=== PATIENT | female | born 1970 | race Caucasian/White ===

== ENCOUNTER → 2016-05-21 | Outpatient (CLI) | payer OTHER ==
[~2016-05-21] MED LIST: B-COTAB18 PO; CHOL100027 PO; CLON1TAB3 PO; FLUO20CA35 PO; GABA-112 PO; IBUP-1277 PO; LEVO25TA PO; OMEGCAP2 PO
[2016-05-21 12:17] LABS: BASO % 0.8 %; BASO ABS # 0.04 K/uL (0-0.2); COMPLETE YES; EOS % 2.1 %; HEMATOCRIT 39.2 % (37-47); IG% 0.4 %; LYMPH % 29.6 %; LYMPH ABS # 1.44 K/uL (1.2-3.4); MEAN CELL VOLUME 95.1 fL (80-100); MEAN CORPUSCULAR HGB CONC 33.7 g/dl (32-36); MEAN PLATELET VOLUME 10.5 fL (7.4-10.4); MONO % 8.8 %; NEUT % 58.3 %; PLATELET COUNT 204 K/uL (130-400); RED BLOOD COUNT 4.12 M/uL (4.2-5.4); WHITE BLOOD COUNT 4.87 K/uL (4.8-10.8)
[2016-05-21 12:38] LABS: T3 TOTAL 0.98 ng/ml (0.60-1.81)
[2016-05-21 12:53] LABS: THYROID STIMULATING HORMONE 1.83 uIu/ml (0.300-4.500)
== END | disposition home or self-care (01) ==
LOC: C.LABBFT 07:58
PROVIDERS: ATTEND Psychiatry & Neurology Psychiatry
DX: F31.81 Bipolar II disorder (principal)

== ENCOUNTER 2022-09-09 17:46 | Inpatient (IN) ==
--- NOTE | 2022-09-09 17:53 | Emergency Department Note ---
ED Provider Note History of Present Illness Chief Complaint: Diarrhea Stated Complaint: ABD PAIN,DIARRHEA SINCE FRI,VOMITING,WEAK,DIZZY Time Seen by Provider: 09/09/22 17:52 This is a 52-year-old female accompanied by her who presents to the emergency department with diarrhea, vomiting, and abdominal pain. Symptoms began 4 days ago and have not improved. She is concerned she is dehydrated. Initially began with diarrhea and then the following day had several episodes of vomiting and the abdominal pain began. Abdominal pain is located in the upper central abdomen. Intermittent in nature, comes and goes independent of anything specific. Does not radiate anywhere. Urine has become more concentrated but does not have any dysuria or frequency or urgency. Denies any sick contacts. Has not had any fevers, chills, body aches, upper respiratory symptoms, back pain. Denies any recent international travel. Is having 12 episodes of diarrhea per day. Describes it as dark brown and almost black. Negative fecal occult in primary care office. Saw primary care who ordered outpatient CT and ultrasound. CT showed prominent mesenteric and retroperitoneal lymph nodes, layering material within the gallbladder. Ultrasound showed biliary sludge with no shadowing gallstones and no evidence for acute cholecystitis. Patient has been taking Pepcid without much relief. History of , tubal ligation, endometrial ablation. Home Medications Medication Instructions Recorded Confirmed Type fluoxetine 40 mg capsule 80 mg PO QAM 09/23/21 09/09/22 History gabapentin 400 mg capsule 400 mg PO BID 09/09/22 09/09/22 History pantoprazole 20 mg tablet,delayed 20 mg PO DAILY #30 tabs 09/09/22 09/09/22 Rx release quetiapine 50 mg tablet,extended 100 mg PO HS 09/09/22 09/09/22 History release 24 hr sucralfate 1 gram tablet (Carafate) 1 g PO BID #14 tabs 09/09/22 09/09/22 Rx Allergies Allergy/AdvReac Type Severity Reaction Status Date / Time Sulfa (Sulfonamide Allergy Unknown HIVES Verified 09/08/22 11:38 Antibiotics) Past Med/Surg History Medical History Anxiety Depression History of COVID-19 12/2019, pcr test [place], loss taste/smell, flu-like symptoms>resolved. Hypertension "during only" Leiomyoma of uterus hx Post herpetic neuralgia "still takes gabapentin to help with the pain"-had shingle 8x in 6 years Surgical History H/O tubal ligation History of colposcopy with cervical biopsy History of endometrial ablation S/P section S/P LASIK surgery Family History Father Hypertension Mother Multiple sclerosis Denies family history of Ovarian cancer Prostate cancer Myocardial infarction Breast cancer Colorectal cancer Social History Smoking Status: Never smoker Second Hand Exposure: No; Do You Dip or Chew Tobacco: No; Hx Alcohol Use: Yes Alcohol type: wine Hx Substance Use: Yes (medical marijuana-edible) Last Used Substance Other:: "within August 2021" Preferred Language: Wolof Communication Ability: Effective Visual Impairment: No Limitations Hearing Ability: Normal Leather Etcher Required: No Beliefs That Will Affect Care: None marital status: Current Living Situation: Spouse and Family current occupational status: employed current occupation: [employer], shipping/recieving Feels Safe at Home: Yes Childhood Exposure to Second-Hand Smoke: No Diet: low carbohydrate caffeine: Yes during the past year weight has: remained stable Dental Care, Regularly: Yes Physical Activity Frequency: 1-2 Times per Week Seatbelt Use: always Sunscreen Use: Yes Assistive Devices: None Physical Exam Vital Signs Vital Signs - 24 hr 09/09/22 17:49 09/09/22 18:17 09/09/22 20:06 Temperature 97.7 F Temperature Source Temporal Artery Scan Pulse Rate 99 H Pulse Rate [Apical] 78 Respiratory Rate 20 16 Respiratory Effort / Characteristics Non-Labored Spontaneous Respiratory Depth Normal Respiratory Pattern Regular Blood Pressure 127/88 Blood Pressure [Left Arm] 121/88 Blood Pressure Mean 101 Blood Pressure Mean [Left Arm] 99 Blood Pressure Position Sitting Pulse Oximetry 96 95 Oxygen Delivery Method Room Air Room Air Room Air Sepsis Recent Fever Within 48 Hours No Sepsis New/Unexplained Change in Mental Status No Sepsis Action Taken by Nursing No Action Required CONSTITUTIONAL: Well developed, well nourished, mildly uncomfortable otherwise pleasant in no acute distress. EYES: conjunctivae normal, extraocular muscles intact. No scleral icterus ENMT: External ears normal. Nose with normal external appearance, no congestion. Oral mucous membranes dry. Oropharynx otherwise normal. NECK: Full active range of motion. Supple, nontender LYMPHATIC: No cervical adenopathy RESPIRATORY: Breathing unlabored and symmetric. Lungs clear to auscultation bilaterally. No wheeze, rales, or rhonchi. CARDIOVASCULAR: Tachycardic rate and regular rhythm. No murmurs, rubs, or gall ops. CHEST: Nontender, no crepitus. ABDOMEN: Normal bowel sounds. Abdomen is soft. There is reproducible right upper quadrant and epigastric tenderness, more prominent in the epigastrium. Negative Hay sign. No peritonitis. No CVA tenderness bilaterally. MUSCULOSKELETAL: Moves all extremities at all joints without pain or difficulty. No edema in bilateral lower extremities. SKIN: [place], warm, dry. No rash. NEUROLOGIC: Awake, alert, oriented. Gaze is conjugate. Face symmetric, speech normal. Moves head and all four extremities spontaneously. Sensation and strength grossly intact. PSYCHIATRIC: Appropriate. Normal affect Course Administered Medications Potassium Chloride (K Andrae / Wtr) 10 meq in 100 mls @ 100 mls/hr IV Q1H PHIL Stop: 09/09/22 21:29 Last Admin: 09/09/22 21:03 Dose: 100 mls/hr Documented By: Infusion: 09/09/22 21:02 Dose: 0 mls/hr Documented By: Admin: 09/09/22 19:56 Dose: 100 mls/hr Documented By: CRYSTAL Discontinued Medications Al Hydrox/Mg Hydrox/Simethicone (Aluminum/Magnesium Susp 30 Ml Udc) 15 ml PO NOW STA Stop: 09/09/22 18:17 Last Admin: 09/09/22 18:44 Dose: 15 ml Documented By: FADUMO Sodium Chloride (Nss 1000ml) 2,000 mls @ 999 mls/hr IV .Q2H1M ONE Stop: 09/09/22 20:16 Last Infusion: 09/09/22 21:02 Dose: 0 mls/hr Documented By: Admin: 09/09/22 18:43 Dose: 999 mls/hr Documented By: FADUMO Prochlorperazine (Compazine) 1 mls @ 1 mls/min IV ONE ONE Stop: 09/09/22 20:10 Last Admin: 09/09/22 20:17 Dose: 1 mls/min Documented By: CRYSTAL Magnesium Oxide (Magnesium Oxide 400 Mg Tab) 800 mg PO NOW STA Stop: 09/09/22 19:36 Last Admin: 09/09/22 19:51 Dose: 800 mg Documented By: CRYSTAL Morphine Sulfate (Morphine Sulfate 4 Mg/Ml 1 Ml Carp\\Vial) 4 mg IV NOW STA Stop: 09/09/22 18:17 Last Admin: 09/09/22 18:44 Dose: 4 mg Documented By: FADUMO Ondansetron HCl (Ondansetron Inj 2 Mg/Ml 2 Ml Vial) 4 mg IV NOW STA Stop: 09/09/22 18:17 Last Admin: 09/09/22 18:44 Dose: 4 mg Documented By: FADUMO Potassium Chloride (Potassium Chloride Crtab 20 Meq Tabcr) 40 meq PO NOW STA Stop: 09/09/22 19:27 Last Admin: 09/09/22 19:53 Dose: 40 meq Documented By: CRYSTAL Medical Decision Making Differential Diagnosis Infectious diarrhea, viral gastroenteritis, mesenteric adenitis, acute cholelithiasis, acute cholecystitis, choledocholithiasis, pancreatitis, peptic ulcer disease, gastritis, dissection, small bowel obstruction, among other pathology Medical Records Attestation: I reviewed the patient's medical records. (Reviewed primary care notes, outpatient labs and imaging) Laboratory Data 09/09/22 18:16 09/09/22 18:16 Lab Results 09/09/22 09/09/22 09/09/22 Range/Units 18:16 18:16 18:17 WBC 5.34 (4.8-10.8) K/ul RBC 5.07 (4.20-5.40) M/uL Hgb 15.5 (12.0-16.0) g/dl Hct 43.7 (37.0-47.0) % MCV 86.2 (80.0-100.0) fL MCH 30.6 (25.0-34.0) pg MCHC 35.5 (32.0-36.0) g/dL RDW Std Deviation 42.7 (36.4-46.3) fL RDW Coeff of Jhon 13.5 (11.5-14.5) % Plt Count 271 (130-400) K/uL MPV 10.4 (9.4-12.4) fL Immature Gran % (Auto) 0.6 % Neut % (Auto) 66.3 % Lymph % (Auto) 17.8 % [place] % (Auto) 12.5 % Eos % (Auto) 2.2 % Baso % (Auto) 0.6 % Neut # (Auto) 3.54 (1.40-6.50) K/uL Lymph # (Auto) 0.95 L (1.2-3.4) K/uL [place] # (Auto) 0.67 H (0.11-0.59) K/uL Eos # (Auto) 0.12 (0-0.50) K/uL Baso # (Auto) 0.03 (0-0.2) K/uL Immature Gran # (Auto) 0.03 (0.01-0.20) K/uL Toxic Vacuolation 1+ Polychromasia 1+ Sodium 136 (136-145) mmol/L Potassium 2.8 L (3.5-5.1) mmol/L Chloride 103 (98-107) mmol/L Carbon Dioxide 22 (21-32) mmol/L Anion Gap 11 (3-11) BUN 7 (6-23) mg/dl Creatinine 0.80 (0.6-1.2) mg/dl Est Cr Clr Drug Dosing 106.1 ml/min Est GFR ( Amer) 97.6 ml/min Est GFR (Non-Af Amer) 84.2 ml/min BUN/Creatinine Ratio 8.8 L (10-20) Glucose 120 H (70-99(Fasting)) mg/dl Calcium 8.8 (8.6-10.3) mg/dl Magnesium 1.8 (1.7-2.4) mg/dl Total Bilirubin 1.1 H (0.2-1.0) mg/dl AST 40 H (13-39) U/L ALT 69 H (7-52) U/L Alkaline Phosphatase 99 (34-104) U/L Troponin I High Sens 2.5 (0-14) pg/ml Total Protein 6.8 (6.0-8.3) gm/dl Albumin 4.1 (3.4-5.0) gm/dl Globulin 2.7 (2.5-4.0) gm/dl Albumin/Globulin Ratio 1.5 (0.9-2) Lipase 10 L (11-82) U/L Stl C. cayetanensis PCR (NotDetected) Stool Rotavirus A PCR (NotDetected) Stl Adenov F 40/41 PCR (NotDetected) Stool Astrovirus (PCR) (NotDetected) Stool Campylobacter PCR (NotDetected) Stl C. diff Tox B Gene Negative Cdiff Gene (Neg) Stool Cryptosporidium PCR (NotDetected) Stl E.coli Shiga Tox PCR (NotDetected) Stool E coli O157 PCR (NotDetected) Stl Enterotoxigenic E PCR (NotDetected) Stool EAEC (PCR) (NotDetected) Stl E. histolytica PCR (NotDetected) Stool Giardia Lamblia PCR (NotDetected) Stool Salmonella PCR (NotDetected) Stool Sapovirus (PCR) (NotDetected) Stl P. shigelloides PCR (NotDetected) Stl Shigella/EIEC PCR (NotDetected) St Y.enterocolitica PCR (NotDetected) Stool Vibrio (PCR) (NotDetected) Stl Vibrio cholerae PCR (NotDetected) Stl Norovirus GI/GII PCR (NotDetected) SARS-CoV-2, RNA, NAAT (NEGATIVE) 09/09/22 09/09/22 Range/Units 18:17 20:30 WBC (4.8-10.8) K/ul RBC (4.20-5.40) M/uL Hgb (12.0-16.0) g/dl Hct (37.0-47.0) % MCV (80.0-100.0) fL MCH (25.0-34.0) pg MCHC (32.0-36.0) g/dL RDW Std Deviation (36.4-46.3) fL RDW Coeff of Jhon (11.5-14.5) % Plt Count (130-400) K/uL MPV (9.4-12.4) fL Immature Gran % (Auto) % Neut % (Auto) % Lymph % (Auto) % [place] % (Auto) % Eos % (Auto) % Baso % (Auto) % Neut # (Auto) (1.40-6.50) K/uL Lymph # (Auto) (1.2-3.4) K/uL [place] # (Auto) (0.11-0.59) K/uL Eos # (Auto) (0-0.50) K/uL Baso # (Auto) (0-0.2) K/uL Immature Gran # (Auto) (0.01-0.20) K/uL Toxic Vacuolation Polychromasia Sodium (136-145) mmol/L Potassium (3.5-5.1) mmol/L Chloride (98-107) mmol/L Carbon Dioxide (21-32) mmol/L Anion Gap (3-11) BUN (6-23) mg/dl Creatinine (0.6-1.2) mg/dl Est Cr Clr Drug Dosing ml/min Est GFR ( Amer) ml/min Est GFR (Non-Af Amer) ml/min BUN/Creatinine Ratio (10-20) Glucose (70-99(Fasting)) mg/dl Calcium (8.6-10.3) mg/dl Magnesium (1.7-2.4) mg/dl Total Bilirubin (0.2-1.0) mg/dl AST (13-39) U/L ALT (7-52) U/L Alkaline Phosphatase (34-104) U/L Troponin I High Sens (0-14) pg/ml Total Protein (6.0-8.3) gm/dl Albumin (3.4-5.0) gm/dl Globulin (2.5-4.0) gm/dl Albumin/Globulin Ratio (0.9-2) Lipase (11-82) U/L Stl C. cayetanensis PCR Not Detected (NotDetected) Stool Rotavirus A PCR Not Detected (NotDetected) Stl Adenov F 40/41 PCR Not Detected (NotDetected) Stool Astrovirus (PCR) Not Detected (NotDetected) Stool Campylobacter PCR Not Detected (NotDetected) Stl C. diff Tox B Gene (Neg) Stool Cryptosporidium PCR DETECTED A* (NotDetected) Stl E.coli Shiga Tox PCR DETECTED A* (NotDetected) Stool E coli O157 PCR Not Detected (NotDetected) Stl Enterotoxigenic E PCR Not Detected (NotDetected) Stool EAEC (PCR) Not Detected (NotDetected) Stl E. histolytica PCR Not Detected (NotDetected) Stool Giardia Lamblia PCR Not Detected (NotDetected) Stool Salmonella PCR Not Detected (NotDetected) Stool Sapovirus (PCR) Not Detected (NotDetected) Stl P. shigelloides PCR Not Detected (NotDetected) Stl Shigella/EIEC PCR Not Detected (NotDetected) St Y.enterocolitica PCR Not Detected (NotDetected) Stool Vibrio (PCR) Not Detected (NotDetected) Stl Vibrio cholerae PCR Not Detected (NotDetected) Stl Norovirus GI/GII PCR Not Detected (NotDetected) SARS-CoV-2, RNA, NAAT NEGATIVE (NEGATIVE) ECG Data Attestation: I personally reviewed and interpreted this ECG as follows: (Sinus rhythm with a rate of 91. There are diffuse ST changes. Normal axis. Intervals within normal limits. No prior to compare.) MDM Narrative 52-year-old female presents to the emergency department with 4 days of diarrhea, intermittent vomiting, and intermittent epigastric pain. Concerned about dehydration. On initial exam she is mildly uncomfortable but certainly nontoxic otherwise pleasant. Heart rate rate around 100 and mucous membranes are dry, I suspect she is dehydrated. She does have reproducible tenderness in the epigastric region and less so on the right upper quadrant. Negative Hay sign. IV was inserted and labs were obtained. 2 L IV fluids was administered. She was given morphine for pain, Zofran for nausea, and a GI cocktail for epigastric discomfort as Pepcid was not therapeutic at controlling her symptoms. Outside records were reviewed through primary care. CT abdomen pelvis yesterday showed prominent mesenteric lymph nodes and layering in the gallbladder. Subsequent right upper quadrant ultrasound confirmed sludge with no stones, no evidence of cholecystitis. Labs: No leukocytosis. Hemoglobin slightly more concentrated today at 15.5 comp ared to 14.3 yesterday. Acute hypokalemia at 2.8 compared to 3.1 from yesterday. This was repleted with 40 mEq p.o. and 20 mEq IV potassium over 2 hours. Magnesium is normal. Total bilirubin improved to 1.1 from 1.5 yesterday. Mild elevation of AST and ALT, improved from yesterday. Troponin no rmal. Stool bio fire is positive for Cryptosporidium and Shiga toxin like E. coli. EKG: Demonstrates significant ST changes, likely secondary to hypokalemia. Patient required a dose of Compazine for ongoing nausea. Her tachycardia improved with IV fluid rehydration, and her pain improved to 4 or 5 out of 10. She otherwise remained hemodynamically stable. Due to ongoing GI losses resulting in acute hypokalemia with EKG changes, will admit the patient for observation, fluid rehydration, and ongoing management. Case was discussed with resident Dr. Gibson with [facility] hospitalist group working with Dr. Almeida who agrees to admit the patient for further management. We discussed avoiding antibiotics related to the E. coli, and in extreme cases can consider treatment with nitazoxanide for the Cryptosporidium however unsure if this would affect the E. coli given concern for development of hemolytic uremic syndrome when actively treated. Would consider discussion with GI or infectious disease. Impression Acute hypokalemia, Acute electrocardiogram changes, Cryptosporidiosis, Shiga toxin-producing Escherichia coli (E. coli) (STEC), unspecified Discharge Plan Visit Data Chief Complaint: Diarrhea Stated Complaint: ABD PAIN,DIARRHEA SINCE FRI,VOMITING,WEAK,DIZZY ED Provider: Andrew Chavez ED Midlevel Provider: Bao Hunt Discharge Problem: Acute hypokalemia, Acute electrocardiogram changes, Cryptosporidiosis, Shiga toxin-producing Escherichia coli (E. coli) (STEC), unspecified Patient Disposition: Admitted As Inpatient Condition: Good Prescriptions Prescriptions: No Action sucralfate [Carafate] 1 gram tablet 1 g PO BID Qty: 14 0RF pantoprazole 20 mg tablet,delayed release (DR/EC) 20 mg PO DAILY Qty: 30 2RF fluoxetine 40 mg capsule 80 mg PO QAM quetiapine 50 mg tablet extended release 24 hr 100 mg PO HS gabapentin 400 mg capsule 400 mg PO BID Referrals Referrals: Xiao Sharif MD [Primary Care Provider] -
[2022-09-09] MEDS ORDERED: ALUMINUM/MAGNESIUM SUSP 30 ML UDC PO STA (18:16)
[2022-09-09] MEDS ORDERED: MoRPHine SULFATE 4 MG/ML 1 ML CARP\\VIAL IV STA (18:16)
[2022-09-09] MEDS ORDERED: ONDANSETRON INJ 2 MG/ML 2 ML VIAL IV STA (18:16)
[2022-09-09] MEDS ORDERED: SODIUM CHLORIDE 0.9% 1000ML 2,000 ML IV ONE (18:16)
[2022-09-09 18:50] LABS: Hematocrit (blood only) 43.7 % (37.0-47.0); Hemoglobin 15.5 g/dl (12.0-16.0); Mean Corpuscular Hemoglobin 30.6 pg (25.0-34.0); Mean Corpuscular Hgb Conc 35.5 g/dL (32.0-36.0); Mean Corpuscular Volume 86.2 fL (80.0-100.0); Mean Platelet Volume 10.4 fL (9.4-12.4); Platelet Count 271 K/uL (130-400); RDW Coefficient of Variation 13.5 % (11.5-14.5); RDW Standard Deviation 42.7 fL (36.4-46.3); Red Blood Count 5.07 M/uL (4.20-5.40); White Blood Count 5.34 K/ul (4.8-10.8)
[2022-09-09 19:09] LABS: Albumin Globulin Ratio 1.5 (0.9-2); Albumin Level 4.1 gm/dl (3.4-5.0); BUN Creatinine Ratio 8.8 (10-20); Bilirubin,Total 1.1 mg/dl (0.2-1.0); Calcium 8.8 mg/dl (8.6-10.3); Creatinine Clr Calc Pharmacy 106.1 ml/min; Est GFR (African American) 97.6 ml/min; Est GFR (Non-African American) 84.2 ml/min; Globulin 2.7 gm/dl (2.5-4.0); Potassium 2.8 mmol/L (3.5-5.1); Total Protein 6.8 gm/dl (6.0-8.3)
[2022-09-09 19:11] LABS: Basophils # (auto) 0.03 K/uL (0-0.2); Basophils % (auto) 0.6 %; Eosinophils # (auto) 0.12 K/uL (0-0.50); Eosinophils % (auto) 2.2 %; Immature Granulocytes # (auto) 0.03 K/uL (0.01-0.20); Immature Granulocytes % (auto) 0.6 %; Lymphocytes # (auto) 0.95 K/uL (1.2-3.4); Lymphocytes % (auto) 17.8 %; Monocytes # (auto) 0.67 K/uL (0.11-0.59); Monocytes % (auto) 12.5 %; Neutrophils # (auto) 3.54 K/uL (1.40-6.50); Neutrophils % (auto) 66.3 %; Polychromasia 1+; Toxic Vacuolation 1+
[2022-09-09 19:12] LABS: Troponin I High Sensitivity 2.5 pg/ml (0-14)
[2022-09-09] MEDS ORDERED: POTASSIUM CHLORIDE CRTAB 20 MEQ TABCR PO STA (19:26)
[2022-09-09] MEDS ORDERED: MAGNESIUM OXIDE 400 MG TAB PO STA (19:35)
[2022-09-09] MEDS: POTASSIUM CHLORIDE / WTR 10 MEQ/100 ML PLCT IV SCH ×2 (19:56→21:03)
[2022-09-09 20:05] LABS: Magnesium 1.8 mg/dl (1.7-2.4)
[2022-09-09 20:09] LABS: Adenovirus F 40/41 PCR Not Detected (NotDetected); Astrovirus PCR Not Detected (NotDetected); Campylobacter PCR Not Detected (NotDetected); Cyclospora cayetanensis PCR Not Detected (NotDetected); E.coli O157 PCR Not Detected (NotDetected); Entamoeba histolytica PCR Not Detected (NotDetected); Enteroaggregative E.coli(EAEC) Not Detected (NotDetected); Enterotoxigenic E.coli (ETEC) Not Detected (NotDetected); Giardia lamblia PCR Not Detected (NotDetected); Norovirus GI/GII PCR Not Detected (NotDetected); Plesiomonas shigelloides PCR Not Detected (NotDetected); Rotavirus A PCR Not Detected (NotDetected); Salmonella PCR Not Detected (NotDetected); Sapovirus PCR Not Detected (NotDetected); Shigella/Enteroinvasive E.coli Not Detected (NotDetected); Vibrio cholerae PCR Not Detected (NotDetected); Vibrio species PCR Not Detected (NotDetected); Yersinia enterocolitica PCR Not Detected (NotDetected)
[2022-09-09] MEDS ORDERED: PROCHLORPERAZINE 1 ML IV ONE (20:09)
[2022-09-09 20:17] LABS: Cryptosporidium PCR DETECTED (NotDetected); Shiga-like Toxin E.coli (STEC) DETECTED (NotDetected)
--- NOTE | 2022-09-09 20:47 | History & Physical Report ---
Date of Service September 09, 2022 Assessment & Plan (1) Cryptosporidiosis: Plan: Patient with positive Cryptosporidium and Shiga toxin producing E. coli. Call the the Department of Health, awaiting phone call back. We will give Imodium as needed for diarrhea, fluid hydration with NSS with 20 mEq KCl We will start clear liquid diet and advance as tolerated. Patient may have some underlying immunocompromised disease though unlikely has HIV given no recent new sexual partners. May consider in the future testing for HIV. Patient has had multiple bouts of recurrent shingles which may be due to some underlying IC. Can be worked up as an outpatient if deemed necessary by day team We will hold off on any antibiotics at this time given patient is stable. We will treat as supportive care with considerations of starting antibiotics if patient deteriorates and as we await return call from Department of [facility]. (2) Shiga toxin-producing Escherichia coli (E. coli) (STEC), unspecified: Plan: As above. (3) Acute hypokalemia: Plan: EKG showing ST depression. Most likely secondary to hypokalemia. Mag of 1.8 in the ED. Mag repleted in ED. We will check a morning labs. We will keep on telemetry and replace potassium. (4) Transaminitis: Plan: Patient with transaminitis and a increase in bilirubin. Downtrending since yesterday's labs done by PCP. We will continue to monitor while as an inpatient. CT abdomen pelvis benign yesterday and biliary ultrasound done today without any evidence of acute cholecystitis or stones. We will continue to monitor. History of Present Illness Chief Complaint: Diarrhea Primary Care Provider: Xiao Sharif MD Patient is a 52-year-old female with past medical history of depression, GERD, and recurrent herpes zoster who presents to the hospital with diarrhea, vomiting, and abdominal pain. Patient states that she has been having diarrhea since Wednesday and has some nausea and vomiting associated with the diarrhea. She states that the diarrhea is watery and dark brown. She states that she has been having about 12 bouts of diarrhea every single day. States that she has diffuse abdominal tenderness but is more tender epigastrically. Patient states that she has not been able to eat over the past couple days. She denies any fever, chills, any sick contacts. She denies any travel. She denies any new exposures to foods or anyone in the household also been sick. She denies any new sexual partners or IV drug use. She denies any diagnosis that would make her immunocompromise. She does state that she has had shingles about 10 times in the past couple years even after getting her Shingrix. Patient sought out care from her PCP prior to admission. She had a CBC done yesterday which was benign, a CMP which showed hypokalemia, elevated bilirubin, and liver enzymes. She also had a CT abdomen and pelvis which showed no bowel obstruction, though did show prominent mesenteric and retroperitoneal lymph nodes, 4 mm left renal calculus without hydronephrosis, sludge or stones in the gallbladder with no evidence of acute cholecystitis. In the ED: CBC, worsening hypokalemia at 2.8. Elevated bilirubin, AST, and ALT though trending downward from yesterday's labs done by PCP. Lipase negative gallbladder ultrasound showed biliary sludge with no gallstones identified or evidence of acute cholecystitis. Magnesium of 1.8. Stool PCR was positive for Cryptosporidium and E. coli Shiga toxin. Was given mag oxide and potassium chloride as well as fluids in the ED. UA collected though pending at time of admission. EKG done in the ED showed some ST depression. Patient without any chest pain and troponin negative Allergies Allergy/AdvReac Type Severity Reaction Status Date / Time Sulfa (Sulfonamide Allergy Unknown HIVES Verified 09/08/22 11:38 Antibiotics) Home Medications Medication Instructions Recorded Confirmed Type fluoxetine 40 mg capsule 80 mg PO QAM 09/23/21 09/09/22 History gabapentin 400 mg capsule 400 mg PO BID 09/09/22 09/09/22 History pantoprazole 20 mg tablet,delayed 20 mg PO DAILY #30 tabs 09/09/22 09/09/22 Rx release quetiapine 50 mg tablet,extended 100 mg PO HS 09/09/22 09/09/22 History release 24 hr sucralfate 1 gram tablet (Carafate) 1 g PO BID #14 tabs 09/09/22 09/09/22 Rx Past Med/Surg History Medical History Anxiety Depression History of COVID-19 12/2019, pcr test [place], loss taste/smell, flu-like symptoms>resolved. Hypertension "during only" Leiomyoma of uterus hx Post herpetic neuralgia "still takes gabapentin to help with the pain"-had shingle 8x in 6 years Surgical History H/O tubal ligation History of colposcopy with cervical biopsy History of endometrial ablation S/P section S/P LASIK surgery Family History Father Hypertension Mother Multiple sclerosis Denies family history of Ovarian cancer Prostate cancer Myocardial infarction Breast cancer Colorectal cancer Social History Smoking Status: Never smoker Second Hand Exposure: No; Do You Dip or Chew Tobacco: No; Hx Alcohol Use: No Hx Substance Use: No Preferred Language: Azeri Communication Ability: Effective Visual Impairment: No Limitations Hearing Ability: Normal Cook Fishing Vessel Required: No Beliefs That Will Affect Care: None marital status: Current Living Situation: Spouse current occupational status: employed current occupation: [employer], 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[employer] Other Information That Helps Us Care for You: No Feels Safe at Home: Yes Safety Concerns: Feels Safe At This Time Childhood Exposure to Second-Hand Smoke: No Diet: low carbohydrate caffeine: Yes during the past year weight has: remained stable Dental Care, Regularly: Yes Physical Activity Frequency: 1-2 Times per Week Seatbelt Use: always Sunscreen Use: Yes Assistive Devices: None Review of Systems Review of Systems: All systems reviewed & are unremarkable except as noted in Subjective Physical Exam Physical Exam: Constitutional: well-appearing, no acute distress HEENT: NCAT, no conjunctival injection CV: regular rhythm, no murmur appreciated, extremities well-perfused, no LE edema Resp: CTABL, no wheezes/rales/rhonchi appreciated, no increased work of breathing GI: soft, nondistended, BS normoactive, epigastric tenderness with mild palpitation and diffuse abdominal tenderness throughout with moderate palpitation MSK: no gross deformities appreciated Skin: warm, dry, no rash appreciated Neuro: alert, oriented, no focal neurologic deficit appreciated Results & Data Results & Data Vital Signs (Past 12 Hours) Vital Signs Temp Pulse Pulse Resp BP BP Pulse Ox 09/09/22 20:06 78 16 121/88 95 09/09/22 18:17 09/09/22 17:49 36.5 C 99 H 20 127/88 96 O2 Del Method 09/09/22 20:06 Room Air 09/09/22 18:17 Room Air 09/09/22 17:49 Room Air Supervising Physician Co-Signing Physician Notes Attending addendum: I have physically seen this patient, have supervised the medical residents activities, and agree with the H&P unless as otherwise noted. Assessment and Plan: Infectious diarrhea- Stool PCR positive for Cryptosporidium and E. coli Shiga toxin Unclear etiology at this point Patient reports having been a local swimming pool earlier in the week Patient also reports having stray cats who recently treated for worms Have consulted the [facility], and waiting for reply Consult infectious disease recommendations regarding treatment Electrolyte disturbances- Hypokalemia with potassium 2.8 and hypomagnesemia with Magnesium 1.8 Replace both IV and orally, and recheck laboratories in a.m. Abnormal LFTs- AST 40, ALT 69, total bilirubin 1.1 May be secondary to infectious diarrhea CT abdomen pelvis yesterday negative, and biliary ultrasound negative today Consider HIDA scan if symptoms worsen Resident Activity Tracking Resident Involvement: Resident Care Provided Care Provided: Adult Hospital Medicine
[2022-09-09 22:44] LABS: Appearance Urine Cloudy (Clear); Bacteria Urine Automated 1+ (Negative); Bilirubin Urine Negative (Negative); Blood Urine Negative (Negative); Color Urine Dark Yellow; Epithelial Cell Urine Auto >30 /lpf (0-5); Glucose Urine UA Negative (Negative); Ketones Urine Negative (Negative); Leukocyte Esterase Urine Trace (Negative); Nitrite Urine Negative (Negative); Protein Urine Negative (Negative); Specific Gravity Urine 1.014 (1.000-1.030); Urobilinogen Urine Negative (Negative)
[2022-09-09 22:55] LABS: Cast Urine Automated >30 /lpf (0-5); Mucus Urine Present (None Prsent); RBC Urine Automated 0-4 /hpf (0-4)
[2022-09-09] MEDS ORDERED: LOPERAMIDE HCL 2 MG CAP PO PRN (23:07)
[2022-09-09] MEDS ORDERED: LOPERAMIDE HCL 2 MG CAP PO STA (23:07)
[2022-09-10] MEDS: NSS + 20MEQ KCL 20 MEQ/1,000 ML BAG IV SCH ×3 (00:05→21:15)
[2022-09-10 07:35] LABS: Hematocrit (blood only) 35.3 % (37.0-47.0); Hemoglobin 12.3 g/dl (12.0-16.0); Mean Corpuscular Hemoglobin 30.2 pg (25.0-34.0); Mean Corpuscular Hgb Conc 34.8 g/dL (32.0-36.0); Mean Corpuscular Volume 86.7 fL (80.0-100.0); Mean Platelet Volume 10.1 fL (9.4-12.4); Platelet Count 157 K/uL (130-400); RDW Coefficient of Variation 13.7 % (11.5-14.5); RDW Standard Deviation 43.8 fL (36.4-46.3); Red Blood Count 4.07 M/uL (4.20-5.40)
[2022-09-10 08:08] LABS: Albumin Globulin Ratio 1.5 (0.9-2); Albumin Level 2.9 gm/dl (3.4-5.0); BUN Creatinine Ratio 6.5 (10-20); Bilirubin,Total 0.7 mg/dl (0.2-1.0); Calcium 7.6 mg/dl (8.6-10.3); Creatinine Clr Calc Pharmacy 137.1 ml/min; Est GFR (African American) 119.3 ml/min; Est GFR (Non-African American) 102.9 ml/min; Globulin 1.9 gm/dl (2.5-4.0); Magnesium 1.7 mg/dl (1.7-2.4); Total Protein 4.8 gm/dl (6.0-8.3)
[2022-09-10] MEDS: ASPIRIN 81 MG ECTAB PO SCH (08:34)
[2022-09-10] MEDS: POTASSIUM CHLORIDE CRTAB 20 MEQ TABCR PO SCH ×2 (08:34→19:59)
--- NOTE | 2022-09-10 08:51 | Hospitalist Progress Note ---
Date of Service September 10, 2022 Assessment & Plan (1) Cryptosporidiosis: Plan: Several days of watery brown diarrhea, up to 12 episodes per day Stool testing C. diff negative Positive for STEC and Cryptosporidium Supportive care, IV fluids as needed, electrolyte replacement Department of Health informed of this case by our infection control team HIV testing pending; will discuss with Immunology tomorrow as I am suspicious of an underlying immunodeficiency Given severe symptoms requiring hospitalization have ordered nitazoxanide 500mg q12h x3 days (2) Shiga toxin-producing Escherichia coli (E. coli) (STEC), unspecified: Plan: see above (3) Acute hypokalemia: Plan: K 3.0 today (2.8 yesterday), will given another total 40meq K Riders IV and 40 meq KCl PO with repeat BMP tomorrow (4) Transaminitis: Plan: With elevated LFTs on admission, resolved CTAP and RUQ US without evidence of biliary pathology Can occur with cryptosporidial infection (5) Herpes zoster: Plan: Recurrent, unclear why With cryptosporidial infection and recurrent Zoster question if patient has immunodeficiency Admission and Anticipated Discharge Date Admission Date: September 09, 2022 Subjective Overnight with bouts of diarrhea, watery, brown. No abdominal pain. Intermittent nausea noted. Review of Systems Review of Systems: All systems reviewed & are unremarkable except as noted in Subjective Physical Exam Constitutional: WD/WN, vitals as above Respiratory: normal respiratory effort, lungs clear to auscultation Cardiovascular: RRR, no murmur, no edema Gastrointestinal (Abdomen): normal bowel sounds, soft, nontender, no hepatosplenomegaly Skin: no rashes, warm and dry Psychiatric: A+Ox3, euthymic affect Results & Data Results & Data Vital Signs (Past 12 Hours) Vital Signs Temp Pulse Pulse Pulse Resp BP Pulse Ox 09/10/22 07:09 36.8 C 76 16 104/66 95 09/10/22 03:18 36.6 C 70 18 97 09/09/22 23:01 82 09/09/22 23:21 36.7 C 83 18 109/71 96 09/09/22 23:07 09/09/22 23:07 36.7 C 83 18 109/71 96 09/09/22 21:00 78 16 138/78 98 Pulse Ox O2 Del Method O2 Del Method 09/10/22 07:09 Room Air 09/10/22 03:18 Room Air 09/09/22 23:01 09/09/22 23:21 Room Air 09/09/22 23:07 96 Room Air 09/09/22 23:07 Room Air 09/09/22 21:00 Room Air PG Care Time/CCT Total # of Minutes Spent Total Time Spent with Patient: Total time spent is greater than 50% in coordination of care (as documented) at patient's floor/unit and/or counseling patient: Coding Level of Care Code 37447 SUB INP/OBS CARE 3/50MIN Diagnoses Cryptosporidiosis A07.2 Shiga toxin-producing Escherichia coli (E. coli) (STEC), unspecified A49.8 Acute hypokalemia E87.6 Transaminitis R74.01 Herpes zoster B02.9
[2022-09-10] MEDS: POTASSIUM CHLORIDE / WTR 10 MEQ/100 ML PLCT IV SCH ×4 (10:15→13:50)
[2022-09-10] MEDS: FLUoxetine HCL 20 MG CAP PO SCH (10:15)
[2022-09-10] MEDS: GABAPENTIN 400 MG CAP PO SCH ×2 (10:15→19:59)
[2022-09-10] MEDS: ONDANSETRON INJ 2 MG/ML 2 ML VIAL IV PRN (11:24)
--- NOTE | 2022-09-10 14:33 | Electrocardiogram Report ---
Test Reason : Blood Pressure : / mmHG Vent. Rate : 091 BPM Atrial Rate : 091 BPM P-R Int : 144 ms QRS Dur : 084 ms QT Int : 380 ms P-R-T Axes : 024 011 168 degrees QTc Int : 467 ms Normal sinus rhythm Marked ST abnormality, possible lateral subendocardial injury Abnormal ECG No previous ECGs available Confirmed by Calin Johnson ([id number]) on 09/10/2022 2:32:39 PM Referred By: REFERRED SELF Confirmed By:Agapito Johnson
[2022-09-10] MEDS: AZITHROMYCIN 250 MG TAB PO SCH (16:07)
--- NOTE | 2022-09-10 17:36 | Electrocardiogram Report ---
Test Reason : Blood Pressure : / mmHG Vent. Rate : 080 BPM Atrial Rate : 080 BPM P-R Int : 138 ms QRS Dur : 084 ms QT Int : 380 ms P-R-T Axes : 043 054 246 degrees QTc Int : 438 ms Normal sinus rhythm Low voltage QRS Abnormal ECG When compared with ECG of 09-SEP-2022 17:59, No significant change was found Confirmed by Calin Johnson ([id number]) on 09/10/2022 5:35:35 PM Referred By: REFERRED SELF Confirmed By:Agapito Johnson
[2022-09-10] MEDS: QUEtiapine FUMARATE 50 MG TABCR PO SCH (19:59)
[2022-09-10] MEDS: NITAZOXANIDE 500 MG TAB PO SCH (19:59)
--- NOTE | 2022-09-11 04:31 | Billing Data ---
Date of Service September 11, 2022 Coding Level of Care Code 37221 INT INP/OBS CARE
[2022-09-11 07:26] LABS: Hematocrit (blood only) 35.6 % (37.0-47.0); Mean Corpuscular Hemoglobin 30.2 pg (25.0-34.0); Mean Corpuscular Hgb Conc 33.7 g/dL (32.0-36.0); Mean Corpuscular Volume 89.4 fL (80.0-100.0); Mean Platelet Volume 10.1 fL (9.4-12.4); Platelet Count 157 K/uL (130-400); RDW Coefficient of Variation 14.1 % (11.5-14.5); RDW Standard Deviation 46.1 fL (36.4-46.3); Red Blood Count 3.98 M/uL (4.20-5.40); White Blood Count 4.11 K/ul (4.8-10.8)
[2022-09-11 07:44] LABS: BUN Creatinine Ratio 4.3 (10-20); Calcium 7.8 mg/dl (8.6-10.3); Creatinine Clr Calc Pharmacy 123.2 ml/min; Est GFR (African American) 115.2 ml/min; Est GFR (Non-African American) 99.4 ml/min; Potassium 3.5 mmol/L (3.5-5.1)
[2022-09-11 08:09] LABS: ALC (manual) 0.74 K/uL (1.2-3.4); ANC (manual) 3.04 K/uL (1.4-6.5); Lymphocytes # (manual) 0.74 K/uL (1.2-3.4); Lymphocytes % (manual) 18 %; Monocytes # (manual) 0.25 K/uL (0.11-0.59); Monocytes % (manual) 6 %; Myelocytes # (manual) 0.08 K/uL (0-0); Myelocytes % (manual) 2 %; Neutrophils # (manual) 3.04 K/uL (1.40-6.50); Neutrophils % (manual) 74 %
--- NOTE | 2022-09-11 08:16 | Hospitalist Progress Note ---
Date of Service September 11, 2022 Assessment & Plan (1) Cryptosporidiosis: Plan: Several days of watery brown diarrhea, still ongoing, up to 1 BM/hr Stool testing C. diff negative Positive for STEC and Cryptosporidium Supportive care, IV fluids to continue for now given profuse diarrhea, electrolyte replacement as needed Given severe symptoms requiring hospitalization would complete nitazoxanide 500mg q12h x3 days (today is day 1) Department of Health informed of this case by our infection control team (2) Shiga toxin-producing Escherichia coli (E. coli) (STEC), unspecified: Plan: see above (3) Immunodeficiency: Plan: Noted history of up to 10 episodes of Shingles in her life, and also with Cryptosporidial diarrhea this admission HIV testing pending IgG 473, IgA 49 (both low), possible she has CVID, discussed with Dr. Kline 09/11 and will have outpatient follow up on discharge to complete work up (4) Acute hypokalemia: Plan: Resolved, K 3.5 today, continue KCl in fluids and close monitoring with daily BMP given ongoing profuse diarrhea (5) Transaminitis: Plan: With elevated LFTs on admission, resolved CTAP and RUQ US without evidence of biliary pathology Can occur with cryptosporidial infection (6) Herpes zoster: Plan: Recurrent, suspect due to underlying immunodeficiency Admission and Anticipated Discharge Date Admission Date: September 09, 2022 Subjective Overnight with diarrhea when not asleep, up to an episode every hour. Total of 31 BMs in 24 hours noted in nursing documentation. Today Terra feels just a touch better, no abdominal pain, still intermittent nausea. Review of Systems Review of Systems: All systems reviewed & are unremarkable except as noted in Subjective Physical Exam Constitutional: WD/WN, vitals as above Gastrointestinal (Abdomen): normal bowel sounds, soft, nontender, no hepa tosplenomegaly Skin: no rashes, warm and dry Psychiatric: A+Ox3, euthymic affect Results & Data Results & Data Vital Signs (Past 12 Hours) Vital Signs Temp Pulse Pulse Resp BP Pulse Ox Pulse Ox 09/11/22 07:54 76 09/11/22 07:14 36.9 C 79 18 110/73 97 09/11/22 04:32 37 C 81 16 125/75 96 09/11/22 00:05 36.7 C 93 H 18 129/85 94 09/10/22 22:00 82 09/10/22 23:41 37.5 C 82 16 115/73 96 09/10/22 23:07 96 O2 Del Method O2 Del Method 09/11/22 07:54 09/11/22 07:14 Room Air 09/11/22 04:32 Room Air 09/11/22 00:05 Room Air 09/10/22 22:00 09/10/22 23:41 Room Air 09/10/22 23:07 Room Air PG Care Time/CCT Total # of Minutes Spent Total Time Spent with Patient: Total time spent is greater than 50% in coordination of care (as documented) at patient's floor/unit and/or counseling patient: Coding Level of Care Code 28109 SUB INP/OBS CARE 3/50MIN Diagnoses Cryptosporidiosis A07.2 Shiga toxin-producing Escherichia coli (E. coli) (STEC), unspecified A49.8 Immunodeficiency D84.9 Acute hypokalemia E87.6 Transaminitis R74.01 Herpes zoster B02.9
[2022-09-11] MEDS: NSS + 20MEQ KCL 20 MEQ/1,000 ML BAG IV SCH ×2 (08:44→17:52)
[2022-09-11] MEDS: ONDANSETRON INJ 2 MG/ML 2 ML VIAL IV PRN ×2 (08:49→14:35)
[2022-09-11] MEDS: ASPIRIN 81 MG ECTAB PO SCH (08:59)
[2022-09-11] MEDS: AZITHROMYCIN 250 MG TAB PO SCH (09:00)
[2022-09-11] MEDS: FLUoxetine HCL 20 MG CAP PO SCH (09:01)
[2022-09-11] MEDS: NITAZOXANIDE 500 MG TAB PO SCH ×2 (09:03→19:49)
[2022-09-11] MEDS: GABAPENTIN 400 MG CAP PO SCH ×2 (09:03→19:50)
[2022-09-11] MEDS: POTASSIUM CHLORIDE CRTAB 20 MEQ TABCR PO SCH ×2 (09:04→19:49)
[2022-09-11 09:15] LABS: Immunoglobulin A 49.8 mg/dl (70-400); Immunoglobulin G 473.7 mg/dl (635-1741); Immunoglobulin M 131.3 mg/dl (45-281)
[2022-09-11] MEDS: QUEtiapine FUMARATE 50 MG TABCR PO SCH (19:50)
[2022-09-11] MEDS ORDERED: ACETAMINOPHEN 325 MG TAB PO PRN (23:14)
[2022-09-11] MEDS ORDERED: MELATONIN 3 MG TAB PO PRN (23:14)
[2022-09-12] MEDS ORDERED: KETOROLAC TROMETHAMINE 15 MG/ML VIAL IV ONE (00:42)
[2022-09-12] MEDS: NSS + 20MEQ KCL 20 MEQ/1,000 ML BAG IV SCH (03:29)
[2022-09-12 06:52] LABS: Calcium 7.8 mg/dl (8.6-10.3); Creatinine Clr Calc Pharmacy 141.1 ml/min; Est GFR (African American) 120.6 ml/min; Est GFR (Non-African American) 104.1 ml/min; Magnesium 1.7 mg/dl (1.7-2.4); Potassium 3.7 mmol/L (3.5-5.1)
--- NOTE | 2022-09-12 08:06 | Discharge Summary ---
Discharge Summary Date of Service September 12, 2022 Admission HPI Per Admitting Provider Patient is a 52-year-old female with past medical history of depression, GERD, and recurrent herpes zoster who presents to the hospital with diarrhea, vomiting, and abdominal pain. Patient states that she has been having diarrhea since Wednesday and has some nausea and vomiting associated with the diarrhea. She states that the diarrhea is watery and dark brown. She states that she has been having about 12 bouts of diarrhea every single day. States that she has diffuse abdominal tenderness but is more tender epigastrically. Patient states that she has not been able to eat over the past couple days. She denies any fever, chills, any sick contacts. She denies any travel. She denies any new exposures to foods or anyone in the household also been sick. She denies any new sexual partners or IV drug use. She denies any diagnosis that would make her immunocompromise. She does state that she has had shingles about 10 times in the past couple years even after getting her Shingrix. Patient sought out care from her PCP prior to admission. She had a CBC done yesterday which was benign, a CMP which showed hypokalemia, elevated bilirubin, and liver enzymes. She also had a CT abdomen and pelvis which showed no bowel obstruction, though did show prominent mesenteric and retroperitoneal lymph nodes, 4 mm left renal calculus without hydronephrosis, sludge or stones in the gallbladder with no evidence of acute cholecystitis. In the ED: CBC, worsening hypokalemia at 2.8. Elevated bilirubin, AST, and ALT though trending downward from yesterday's labs done by PCP. Lipase negative gallbladder ultrasound showed biliary sludge with no gallstones identified or evidence of acute cholecystitis. Magnesium of 1.8. Stool PCR was positive for Cryptosporidium and E. coli Shiga toxin. Was given mag oxide and potassium chloride as well as fluids in the ED. UA collected though pending at time of admission. EKG done in the ED showed some ST depression. Patient without any chest pain and troponin negative Admission Exam Per Admitting Provider Constitutional: well-appearing, no acute distress HEENT: NCAT, no conjunctival injection CV: regular rhythm, no murmur appreciated, extremities well-perfused, no LE edema Resp: CTABL, no wheezes/rales/rhonchi appreciated, no increased work of breathing GI: soft, nondistended, BS normoactive, epigastric tenderness with mild palpitation and diffuse abdominal tenderness throughout with moderate palpitation MSK: no gross deformities appreciated Skin: warm, dry, no rash appreciated Neuro: alert, oriented, no focal neurologic deficit appreciated Principal Dx & Hospital Course #1 = Principal Diagnosis (1) Cryptosporidiosis: Several days of watery brown diarrhea, improved on day of discharge Stool testing C. diff negative Positive for STEC and Cryptosporidium Supportive care, encouraged PO fluids on discharge Sent on azithromycin x3 days Department of Health informed of this case by our infection control team (2) Shiga toxin-producing Escherichia coli (E. coli) (STEC), unspecified: see above (3) Immunodeficiency: Noted history of up to 10 episodes of Shingles in her life, and also with Cryptosporidial diarrhea this admission IgG 473, IgA 49 (both low), possible she has CVID, discussed with Dr. Kline 09/11 and will have outpatient follow up on discharge to complete work up HIV testing pending (4) Acute hypokalemia: Resolved, K 3.7 today, encouraged potassium-containing foods/fluids at home while having diarrhea (5) Transaminitis: With elevated LFTs on admission, resolved CTAP and RUQ US without evidence of biliary pathology Can occur with cryptosporidial infection (6) Herpes zoster: Recurrent, suspect due to underlying immunodeficiency, f/u as above Discharge Exam Constitutional WD/WN, vitals as above Gastrointestinal (Abdomen) normal bowel sounds, soft, nontender, no hepatosplenomegaly Psychiatric A+Ox3, euthymic affect Updated Medication List Medication Instructions Recorded Confirmed Type fluoxetine 40 mg capsule 80 mg PO QAM 09/23/21 09/09/22 History gabapentin 400 mg capsule 400 mg PO BID 09/09/22 09/09/22 History pantoprazole 20 mg tablet,delayed 20 mg PO DAILY #30 tabs 09/09/22 09/09/22 Rx release quetiapine 50 mg tablet,extended 100 mg PO HS 09/09/22 09/09/22 History release 24 hr sucralfate 1 gram tablet (Carafate) 1 g PO BID #14 tabs 09/09/22 09/09/22 Rx ondansetron 4 mg disintegrating 4 mg PO Q8H PRN nausea and 09/11/22 Rx tablet vomiting 5 days #15 tabs azithromycin 250 mg tablet 500 mg PO QAM 3 days #6 tabs 09/12/22 Rx loperamide 2 mg capsule 2 mg PO Q12H PRN #0 caps 09/12/22 Rx Hospital Stay Data Consultations 09/09/22 20:42 ED Decision to Admit Stat Pending Results Patient Have Any Pending Studies at Discharge: No Discharge Instructions Given to Patient (Per Discharging Provider) You were admitted to the hospital for profuse diarrhea and found to have Shiga toxin in your stool, as well as Cryptosporidium. Both of these things cause diarrhea. You were given IV fluids and electrolytes when necessary, and Imodium at times for your diarrhea. Your symptoms improved and you were felt to be safe for discharge home with the following recommendations: We recommend that you have follow up with our [employer], Dr. Kline. This is because some of your immunoglobulins, or infection fighter cells, were low, which can indicate an immune deficiency. This may help explain why you got this diarrheal infection, and why you have had Shingles so many times. You can take Imodium at home for your diarrhea. You should do your best to replace any fluids you lose with water or electrolyte-containing fluids. If you have worsening of symptoms, you should call your doctor or seek urgent medical attention. Total Time Total Time Spent Total Time Spent (In Minutes): 40 min Coding Level of Care Code 43766 INP/OBS DISCH >30 MIN Diagnoses Cryptosporidiosis A07.2 Shiga toxin-producing Escherichia coli (E. coli) (STEC), unspecified A49.8 Immunodeficiency D84.9 Acute hypokalemia E87.6 Transaminitis R74.01 Herpes zoster B02.9
[2022-09-12] MEDS: NITAZOXANIDE 500 MG TAB PO SCH (08:18)
[2022-09-12] MEDS: ASPIRIN 81 MG ECTAB PO SCH (08:18)
[2022-09-12] MEDS: AZITHROMYCIN 250 MG TAB PO SCH (08:18)
[2022-09-12] MEDS: POTASSIUM CHLORIDE CRTAB 20 MEQ TABCR PO SCH (08:18)
[2022-09-12] MEDS: FLUoxetine HCL 20 MG CAP PO SCH (08:18)
[2022-09-12] MEDS: GABAPENTIN 400 MG CAP PO SCH (08:18)
[2022-09-12] MEDS: ONDANSETRON INJ 2 MG/ML 2 ML VIAL IV PRN (11:46)
[2022-09-16 19:07] LABS: HIV 1 RNA PCR Copies/ML Not Detected Copies/mL; HIV-1 RNA Log Copies/mL Not Detected Log cps/mL
== END 2022-09-12 12:47 | disposition home or self-care (01) | DRG 372 ==
LOC: ED 17:46 → SUATTDRO 21:20 → 2W 21:20